=== PATIENT | female | born 1990 | race Caucasian/White ===

== ENCOUNTER 2023-09-13 10:58 | Emergency (ER) | payer OTHER ==
[~2023-09-13] VITALS: Ht 162.6 cm; Wt 114.1 kg
[2023-09-13 11:59] VITALS: BP 115/78; PULSE 102; RESP 20; TEMP 99.6; O2SAT 97
[2023-09-13] MEDS: SODIUM CHLORIDE 0.9% 1,000 ML IV ONE (12:24)
[2023-09-13] MEDS: ONDANSETRON ODT 4 MG TAB PO ONE (12:30)
[2023-09-13 12:36] LABS: Rapid Strep A Screen-Throat Negative
[2023-09-13] MEDS: DexAMETHasone INJECTION 10 MG in D5W 5% 50 ML IV ONE (13:08)
[2023-09-13 13:17] LABS: Rapid Influenza A Negative (Negative)
[2023-09-13 13:20] LABS: Rapid Influenza B Positive (Negative)
[2023-09-13 13:21] LABS: COVID19 ANTIGEN SOFIA FIA NEGATIVE (NEGATIVE)
[2023-09-13] MEDS ORDERED: ACET500T58 PO (13:59)
[2023-09-13] MEDS ORDERED: TAMIFLU PO (13:59)
[2023-09-13] MEDS ORDERED: LORA10CA PO (13:59)
[2023-09-13] MEDS ORDERED: BENZ100C97 PO (13:59)
== END 2023-09-13 14:04 | disposition home or self-care (01) ==
LOC: ER 10:58
DX: J10.1 Influenza due to other identified influenza virus with other respiratory manifestations (principal); Z88.8 Allergy status to other drugs, medicaments and biological substances; Z20.822 Contact with and (suspected) exposure to COVID-19
CPT/HCPCS: 36415; 87070; 87426; 87804; 87880; 96361; 96374; 99284; J1100; J7030; J7060; Q0162